=== PATIENT | female | born 1960 | race Caucasian/White ===

== ENCOUNTER 2017-02-28 15:28 | Emergency (ER) | payer OTHER ==
[2017-02-28 15:50] VITALS: BP 113/82; PULSE 104; RESP 18; TEMP 98.1; O2SAT 96
[2017-02-28] MEDS ORDERED: HYDROmorphONE/DILAUDID 2 MG TAB ONE (16:16)
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
== END 2017-02-28 16:25 | disposition home or self-care (01) ==
DX: S46.911A Strain of unspecified muscle, fascia and tendon at shoulder and upper arm level, right arm, initial encounter (principal); S46.912A Strain of unspecified muscle, fascia and tendon at shoulder and upper arm level, left arm, initial encounter; S16.1XXA Strain of muscle, fascia and tendon at neck level, initial encounter; J45.909 Unspecified asthma, uncomplicated; V49.40XA Driver injured in collision with unspecified motor vehicles in traffic accident, initial encounter; Y92.410 Unspecified street and highway as the place of occurrence of the external cause; Y99.8 Other external cause status; Y93.89 Activity, other specified

== ENCOUNTER 2017-11-24 17:28 | Emergency (ER) | payer OTHER ==
[2017-11-24 17:36] VITALS: RESP 18; TEMP 97.3
[2017-11-24] MEDS ORDERED: ALBUTEROL 3 ML DEYVIAL IH ONE (18:08)
--- NOTE | 2017-11-24 18:12 | EDPHY ---
H & P Time Seen by Provider: 11/24/17 17:36 HPI/ROS: CHIEF COMPLAINT: Cough HISTORY OF PRESENT ILLNESS: 57-year-old female presents to the emergency department with productive cough. The patient states she has been sick for over 1 month. Patient initially was seen by her provider at [facility] over a month ago and was diagnosed with sinus infection from positive culture. She was started on Bactrim and took this as prescribed for 10 days. She was doing well for approximately 1 week and then developed cough and continued nasal congestion. The patient states that she has a history of chronic lymphocytic leukemia which was diagnosed in April of 2017. She has a history of frequent, chronic sinus infections. She denies fevers or chills. She denies recent travel. She was initially seen at urgent care today and sent to the emergency department for evaluation. She denies pain in her chest. She is having difficulty breathing secondary to the cough. Denies abdominal pain or vomiting. REVIEW OF SYSTEMS: Constitutional: No fever, no chills. Eyes: No double or blurry vision. ENT: Nasal congestion, rhinorrhea. No sore throat. Respiratory: Cough as above. No shortness of breath. Cardiac: No chest pain. Gastrointestinal: No abdominal pain, vomiting or diarrhea. Genitourinary: No dysuria. Musculoskeletal: No neck or back pain. Skin: No rashes. Neurological: No headache. Past Medical/Surgical History: Chronic lymphocytic leukemia diagnosed April of 2017, sinusitis, orthopedic surgery, uterine ablation, asthma Social History: Single and lives in [place] Smoking Status: Never smoked Physical Exam: General Appearance: Alert, no distress. Afebrile. 93-94% on room air. No respiratory distress. Eyes: Pupils equal and round. Extraocular motions are all intact. ENT: Mouth: Mucous membranes moist. Nasal congestion, rhinorrhea noted. Respiratory: Actively coughing at times. No wheezing, rhonchi, or rales, lungs are clear to auscultation. Cardiovascular: Regular rate and rhythm. Gastrointestinal: Abdomen is soft and nontender, no masses, no rebound or guarding, bowel sounds normal. Neurological: Alert and oriented x 3, cranial nerves II through XII grossly intact Skin: Warm and dry, no rashes. Musculoskeletal: Nontender to palpate along the cervical, thoracic or lumbar spine. Neck is supple. Extremities: Full range of motion and no peripheral edema. Psychiatric: Patient is oriented X 3, there is no agitation. Constitutional: Initial Vital Signs Temperature (C) 36.3 C 11/24/17 17:31 Heart Rate 90 11/24/17 17:31 Respiratory Rate 18 11/24/17 17:31 Blood Pressure 138/89 H 11/24/17 17:31 O2 Sat (%) 97 11/24/17 17:31 O2 Delivery Mode Room Air Allergies/Adverse Reactions: No Known Allergies Allergy (Verified 11/24/17 17:30) Home Medications: Medication Instructions Recorded Albuterol [Proventil Inhaler HFA 1 - 2 puffs IH Q4PRN PRN #1 mdi 11/24/17 (*)] Bactrim DS 11/24/17 Ranitidine HCl 11/24/17 predniSONE 60 mg PO DAILY 4 Days tab 11/24/17 Medical Decision Making - Diagnostics Imaging Results: Imaging Impressions Chest X-Ray 11/24/17 18:08 Impression: 1. Mild perihilar bronchitis, without a focal infiltrate. 2. There is a 9 mm rounded nodule which appears to reside within the medial segment of the right middle lobe, seen on one of two projections on the prior study in 2014 (and reassuringly unchanged from that exam in the lateral projection). Recommendation: Consider follow-up radiographic reevaluation in 3-6 months to assure continued stability of this likely-benign finding. Findings were discussed with ISABELLA DREW PA-C at 18:47, on 11/24/2017. She indicated that the patient is followed at [facility] for her CLL, asthma, and allergies, where all other studies have been performed. Imaging: Discussed imaging studies w/ inbound call center representative Radiologist, I viewed and interpreted images myself ED Course/Re-evaluation: 57-year-old female presents to the emergency department with cough. She does not feel short of breath. Influenza was negative. RSV was positive. Chest x-ray reveals no evidence of pneumonia. There was a lung nodule that was seen on previous chest x-ray from 3 years ago however was only seen on 1 of the views 3 years ago. The radiologist recommends follow-up chest x-ray in 3 6 months for stability. The patient states that she is aware of the lung nodule and this is followed at [facility]. Patient was given albuterol nebulizer and a DuoNeb. She is feeling better but still had occasional expiratory wheeze. She will be treated with oral prednisone. She has taken this in the past. She was instructed to return to the emergency department she developed chest pain, shortness of breath, fever, or if she felt worse in any way. The case was discussed with Dr. Stanford, supervising physician, who did not directly evaluate the patient but agrees with treatment and plan. Differential Diagnosis: Including but not limited to bronchitis, pneumonia, viral upper respiratory infection, influenza, RSV - Data Points Laboratory Results: 11/24/17 18:37 Nasal Influenza A PCR NEGATIVE FOR FLU A (NEGATIVE) Nasal Influenza B PCR NEGATIVE FOR FLU B (NEGATIVE) RSV (PCR) RSV DETECTED H (NEGATIVE) Medications Given: Discontinued Medications Albuterol (Proventil Neb) 3 ml IH EDNOW ONE Stop: 11/24/17 18:09 Last Admin: 11/24/17 18:37 Dose: 3 ml Albuterol/Ipratropium (Duoneb) 3 ml IH EDNOW ONE Stop: 11/24/17 19:43 Last Admin: 11/24/17 19:47 Dose: 3 ml Prednisone (Prednisone) 60 mg PO EDNOW ONE Stop: 11/24/17 20:28 Last Admin: 11/24/17 20:38 Dose: 60 mg Departure - Departure Disposition: Home, Routine, Self-Care Clinical Impression: RSV infection Condition: Good Instructions: Respiratory Syncytial Virus (ED) Additional Instructions: Albuterol 2 puffs every 4 hr for 1 week and then as needed. Prednisone daily for 5 days. Recheck with your primary care provider at [facility] next week. Return to the emergency department sooner if you develop fever, chest pain, difficulty breathing, or if you feel worse in any way. Referrals: ABIGAIL KEMP [Other] - 2-3 days without fail Prescriptions: Albuterol [Proventil Inhaler HFA (*)] 1 - 2 puffs IH Q4PRN PRN #1 mdi PRN Reason: P.r.n. Dyspnea predniSONE 60 mg PO DAILY 4 Days tab
[2017-11-24] MEDS ORDERED: ALBUTEROL 3 ML DEYVIAL ONE (18:35)
[2017-11-24] MEDS ORDERED: IPRATROPIUM/ALBUTEROL 3 ML DEYVIAL IH ONE (19:42)
[2017-11-24] MEDS ORDERED: predniSONE 20 MG TAB PO ONE (20:27)
[2017-11-24 21:00] VITALS: BP 145/89; PULSE 88; O2SAT 94
== END 2017-11-24 20:56 | disposition home or self-care (01) ==
DX: J45.909 Unspecified asthma, uncomplicated (principal); B97.4 Respiratory syncytial virus as the cause of diseases classified elsewhere; Z85.6 Personal history of leukemia
CPT/HCPCS: 71046; 99284; J7512; J7613